=== PATIENT | female | born 1975 | race Caucasian/White ===

== ENCOUNTER 2018-10-15 00:32 | Emergency (ER) | payer BC ==
[~2018-10-15] VITALS: Ht 167.6 cm; Wt 90.9 kg
[~2018-10-15 00:32] MED LIST: AMOXICILLIN500 MG OR; AUGMENTIN875 MG PO; BENTYL10 MG OR; CIPRO500 MG OR; CORTISPORIN OTI10 ML AD; FLOXIN OTIC OT; FLOXIN OTIC0.3 % OT; LORTAB 10 OR; NO HOME MEDS; NO MEDS; PERCOCET 5/325M1 TAB OR
[2018-10-15 01:27] LABS: URINE BILIRUBIN - DIPSTICK NEGATIVE (NEGATIVE); URINE BLOOD DIPSTICK LARGE (NEGATIVE); URINE COLOR YELLOW; URINE GLUCOSE - DIPSTICK NEGATIVE (NEGATIVE); URINE KETONE NEGATIVE (NEGATIVE); URINE LEUK ESTERASE NEGATIVE (NEGATIVE); URINE NITRITE - DIPSTICK NEGATIVE (Negative); URINE PROTEIN - DIPSTICK NEGATIVE (NEG-TRACE)
[2018-10-15 01:47] LABS: URINE BACTERIA RARE hpf; URINE RBC TNTC RBC/hpf (0-5); URINE SQUAMOUS EPITHELIAL CELL FEW EPI/hpf (0-FEW); URINE WBC 0-2 WBC/hpf (0-5)
[2018-10-15] MEDS ORDERED: LORTAB 1010 MG PO (02:45)
[2018-10-15] MEDS ORDERED: FLEXERIL PO (02:45)
[2018-10-15 02:57] VITALS: BP 129/86
== END 2018-10-15 02:58 | disposition home or self-care (01) | DRG 552 ==
LOC: ED 00:32
PROVIDERS: Emergency Medicine
DX: M51.27 Other intervertebral disc displacement, lumbosacral region (principal); M54.41 Lumbago with sciatica, right side; R50.9 Fever, unspecified; M62.830 Muscle spasm of back; X50.0XXA Overexertion from strenuous movement or load, initial encounter; Y93.89 Activity, other specified; Y92.89 Other specified places as the place of occurrence of the external cause; Y99.0 Civilian activity done for income or pay

== ENCOUNTER 2019-09-30 | Emergency (ER) | payer OTHER, BC ==
[~2019-09-30] MED LIST changes: +FLEXERIL PO; +LORTAB 1010 MG PO
[2019-09-30] MEDS ORDERED: SILVADENE1 % EX (18:11)
== END 2019-09-30 18:54 | disposition home or self-care (01) | DRG 605 ==
DX: S50.312A Abrasion of left elbow, initial encounter (principal); E03.9 Hypothyroidism, unspecified; W22.11XA Striking against or struck by driver side automobile airbag, initial encounter; V54.5XXA Driver of pick-up truck or van injured in collision with heavy transport vehicle or bus in traffic accident, initial encounter

== ENCOUNTER 2019-10-01 | Emergency (ER) | payer OTHER, BC ==
[~2019-10-01] MED LIST changes: +SILVADENE1 % EX
== END 2019-10-01 09:46 | disposition home or self-care (01) | DRG 204 ==
DX: R07.81 Pleurodynia (principal); E03.9 Hypothyroidism, unspecified; V49.40XA Driver injured in collision with unspecified motor vehicles in traffic accident, initial encounter

== ENCOUNTER 2019-10-05 | Emergency (ER) | payer OTHER, BC ==
[2019-10-06] MEDS ORDERED: IBUPROFEN600 MG PO (00:13)
== END 2019-10-06 03:40 | disposition home or self-care (01) | DRG 563 ==
DX: S83.91XA Sprain of unspecified site of right knee, initial encounter (principal); X58.XXXA Exposure to other specified factors, initial encounter

== ENCOUNTER 2020-07-18 17:48 | Emergency (ER) | payer BC ==
[~2020-07-18 17:48] MED LIST changes: +IBUPROFEN600 MG PO
== END 2020-07-18 18:15 | disposition left against medical advice (07) | DRG 951 ==
LOC: ED 17:48 → LWOBS 18:14
DX: Z91.19 Patient's noncompliance with other medical treatment and regimen (principal)

== ENCOUNTER 2020-12-05 13:22 | Emergency (ER) | payer BC ==
[~2020-12-05] VITALS: Ht 167.6 cm; Wt 100.0 kg
[2020-12-05 15:18] LABS: HEMATOCRIT 36.3 % (37.0-47.0); HEMOGLOBIN 11.9 g/dl (12.0-16.0); IMMATURE GRANULOCYTES 0.6 % (0.0-5.0); MEAN CELL VOLUME 85.2 fL CALC (80.0-100.0); MEAN CORPUSCULAR HGB 27.9 pG CALC (26.0-32.0); MEAN CORPUSCULAR HGB CONC 32.8 g/dL CAL (32.0-36.0); NEUT# 4.82 thou/uL (2.00-7.15); RED BLOOD COUNT 4.26 mill/uL (4.20-5.60)
[2020-12-05 15:23] LABS: URINE BILIRUBIN - DIPSTICK NEGATIVE (NEGATIVE); URINE BLOOD DIPSTICK LARGE (NEGATIVE); URINE COLOR YELLOW; URINE GLUCOSE - DIPSTICK NEGATIVE (NEGATIVE); URINE KETONE NEGATIVE (NEGATIVE); URINE LEUK ESTERASE NEGATIVE (NEGATIVE); URINE PH 5.5 (4.5-8.0); URINE PROTEIN - DIPSTICK TRACE mg/dL (NEG-TRACE); URINE SPECIFIC GRAVITY >=1.030
[2020-12-05] MEDS ORDERED: LEVOTHYROXIN100 MCG PO (15:25)
[2020-12-05 15:26] LABS: URINE NITRITE - DIPSTICK NEGATIVE (Negative)
[2020-12-05 15:35] LABS: URINE SQUAMOUS EPITHELIAL CELL FEW EPI/hpf (0-FEW)
[2020-12-05 16:00] LABS: ALKALINE PHOSPHATASE 59 u/l (38-126); AMYLASE 60 u/l (30-110); ANION GAP 12 (6-22 (CALC)); BUN 11 mg/dL (7-17); BUN/CREATININE RATIO 19 (12-20 (CALC)); CARBON DIOXIDE 26 mmol/l (22-30); CHLORIDE 104 mmol/l (95-108); CREATININE 0.6 mg/dL (0.5-1.0); GFR > 60 ML/MIN (>=60 (CALC)); GFR FOR AFR.AMER. > 60 ML/MIN (>=60 (CALC)); LIPASE 151 u/l (23-300); POTASSIUM 3.8 mmol/l (3.5-5.1); SGOT/AST 16 u/l (14-36); SODIUM 138 mmol/l (137-146); TOTAL PROTEIN 7.3 g/dL (6.3-8.2)
[2020-12-05 16:03] LABS: BILIRUBIN, TOTAL 0.2 mg/dL (0.0-1.4)
[2020-12-05] MEDS ORDERED: NAPROXEN375 MG PO (23:19)
[2020-12-05 23:35] VITALS: BP 103/59
== END 2020-12-05 23:40 | disposition home or self-care (01) | DRG 552 ==
LOC: ED 13:22
PROVIDERS: Emergency Medicine
DX: M54.9 Dorsalgia, unspecified (principal); N93.8 Other specified abnormal uterine and vaginal bleeding; E03.9 Hypothyroidism, unspecified
CPT/HCPCS: Q9967

== ENCOUNTER 2021-07-19 07:09 | Emergency (ER) | payer BC ==
[~2021-07-19] VITALS: Ht 167.6 cm; Wt 103.0 kg
[~2021-07-19 07:09] MED LIST changes: +LEVOTHYROXIN100 MCG PO; +NAPROXEN375 MG PO
[2021-07-19 07:50] VITALS: BP 120/74
== END 2021-07-19 07:50 | disposition home or self-care (01) | DRG 156 ==
LOC: ED 07:09
DX: H61.23 Impacted cerumen, bilateral (principal); E03.9 Hypothyroidism, unspecified

== ENCOUNTER 2022-08-31 02:12 | Emergency (ER) | payer BC ==
[~2022-08-31] VITALS: Ht 167.6 cm; Wt 102.0 kg
[2022-08-31] MEDS ORDERED: VIBRAMYCIN100 M2 PO (02:31)
[2022-08-31 03:00] VITALS: BP 121/77
== END 2022-08-31 03:03 | disposition home or self-care (01) | DRG 603 ==
LOC: ED 02:12
DX: L03.012 Cellulitis of left finger (principal); E03.9 Hypothyroidism, unspecified

== ENCOUNTER 2022-09-02 13:43 | Emergency (ER) | payer BC ==
[~2022-09-02 13:43] MED LIST changes: +VIBRAMYCIN100 M2 PO
== END 2022-09-02 19:23 | disposition left against medical advice (07) | DRG 951 ==
LOC: ED 13:43 → LWOBS 19:23
DX: Z53.21 Procedure and treatment not carried out due to patient leaving prior to being seen by health care provider (principal)

== ENCOUNTER 2022-09-07 11:40 | Emergency (ER) | payer BC ==
[~2022-09-07] VITALS: Ht 167.6 cm; Wt 105.4 kg
[2022-09-07 12:00] VITALS: BP 123/67
[2022-09-07 12:22] LABS: BASO% 0.4 % (0-3); HEMATOCRIT 38.5 % (37.0-47.0); HEMOGLOBIN 12.6 g/dl (12.0-16.0); IMMATURE GRANULOCYTES 1.8 % (0.0-5.0); LYMPH% 23.8 % (15-41); MEAN CELL VOLUME 84.8 fL CALC (80.0-100.0); MEAN CORPUSCULAR HGB 27.8 pG CALC (26.0-32.0); MEAN CORPUSCULAR HGB CONC 32.7 g/dL CAL (32.0-36.0); NEUT# 5.31 thou/uL (2.00-7.15); RED BLOOD COUNT 4.54 mill/uL (4.20-5.60); RED CELL DISTRI WIDTH 12.7 % (11.5-15.5)
[2022-09-07 13:00] LABS: ALBUMIN 4.2 g/dL (3.2-5.0); ALKALINE PHOSPHATASE 81 u/l (38-126); ANION GAP 13 (6-22 (CALC)); BUN 8 mg/dL (7-17); BUN/CREATININE RATIO 9 (12-20 (CALC)); C-REACTIVE PROTEIN 5.1 mg/dL (0-0.9); CARBON DIOXIDE 25 mmol/l (22-30); CHLORIDE 102 mmol/l (95-108); CREATININE 0.9 mg/dL (0.5-1.0); GFR FOR AFR.AMER. > 60 ML/MIN (>=60 (CALC)); GFR OTHER RACES > 60 ML/MIN (>=60 (CALC)); POTASSIUM 4.3 mmol/l (3.5-5.1); SGOT/AST 20 u/l (14-36); SODIUM 136 mmol/l (137-146); TOTAL PROTEIN 7.7 g/dL (6.3-8.2)
[2022-09-07 13:01] LABS: BILIRUBIN, TOTAL 0.1 mg/dL (0.02-1.3)
[2022-09-07 14:50] VITALS: BP 122/70
[2022-09-07 15:10] VITALS: BP 122/70
== END 2022-09-07 15:12 | DRG 603 ==
LOC: ED 11:40
PROVIDERS: Nurse Practitioner
PROC: 0H9GXZZ Drainage of Left Hand Skin, External Approach (ICD-10-PCS; principal; 2022-09-07)
DX: L03.012 Cellulitis of left finger (principal)